=== PATIENT | female | born 1990 | race African-American/Black ===

== ENCOUNTER 2016-10-18 06:28 | Emergency (ER) | payer OTHER ==
[2016-10-18] MEDS ORDERED: Penicillin V Potassium 250 MG TAB ONE (06:51)
== END 2016-10-18 07:05 | disposition home or self-care (01) ==
LOC: NAV ERS 06:28
DX: K02.9 Dental caries, unspecified (principal); K04.7 Periapical abscess without sinus
CPT/HCPCS: 99282

== ENCOUNTER 2016-11-26 14:43 | Emergency (ER) | payer OTHER | END 2016-11-26 15:20 | disposition home or self-care (01) | LOC: NAV ERS 14:43 | DX: L02.11 Cutaneous abscess of neck (principal) | CPT/HCPCS: 99283 ==

== ENCOUNTER 2017-07-26 15:46 | Emergency (ER) | payer OTHER, SELFPAY ==
[2017-07-26] MEDS ORDERED: Ibuprofen 800 MG TAB ONE (16:13)
== END 2017-07-26 16:22 | disposition home or self-care (01) ==
LOC: NAV ERS 15:46
DX: S39.012A Strain of muscle, fascia and tendon of lower back, initial encounter (principal); V49.40XA Driver injured in collision with unspecified motor vehicles in traffic accident, initial encounter
CPT/HCPCS: 99283

== ENCOUNTER 2018-03-26 11:56 | Emergency (ER) | payer OTHER, SELFPAY ==
[2018-03-26] MEDS ORDERED: Acetaminophen 325 MG TAB ONE (12:43)
== END 2018-03-26 12:59 | disposition home or self-care (01) ==
LOC: NAV ERS 11:56
DX: O99.511 Diseases of the respiratory system complicating pregnancy, first trimester (principal); J10.1 Influenza due to other identified influenza virus with other respiratory manifestations; Z3A.08 8 weeks gestation of pregnancy
CPT/HCPCS: 87081; 87430; 87804; 99283

== ENCOUNTER 2018-09-12 09:48 | Outpatient (CLI) | payer OTHER ==
--- NOTE | 2018-09-12 10:27 | ULT ---
LIMITED OBSTETRIC ULTRASOUND: Date: 09/12/18 HISTORY: Evaluate placental tip for marginal placenta/placental previa. TECHNIQUE: Multiplanar grayscale sonographic imaging of the gravid uterus obtained. FINDINGS: There is a single intrauterine gestation demonstrating a vertex presentation. heart rate is 136 bpm. The placenta is located posteriorly. The placental tip is approximately 1.5 cm from the internal os. biometry: BPD 8.4 cm 33 weeks 5 days HC 30 cm 33 weeks 1 day AC 29.1 cm 33 weeks 1 day FL 6.5 cm 33 weeks 4 days Average age based on ultrasound is 33 weeks 0 days +/- 1 week 0 days. Estimated date of delivery is . Estimated weight is 2158 g +/- 324 g. anatomy is not assessed on this examination. Amniotic fluid index is 12.8 cm. IMPRESSION: Single intrauterine gestation as detailed above. The tip of the placenta is approximately 1.5 cm from the internal os, evidence of a low lying placenta. Transcribed Date/Time: 09/12/2018 10:53 AM
== END 2018-09-12 09:49 | disposition home or self-care (01) ==
LOC: NAV ULT 09:48
PROVIDERS: ATTEND Family Medicine
DX: O44.43 Low lying placenta NOS or without hemorrhage, third trimester (principal); Z3A.33 33 weeks gestation of pregnancy
CPT/HCPCS: 76816

== ENCOUNTER 2023-04-09 10:03 | Emergency (ER) | payer BC, OTHER ==
[2023-04-09] MEDS ORDERED: Acetaminophen 500 MG TAB ONE (10:32)
[2023-04-09] MEDS ORDERED: Ondansetron ODT 4 MG TAB ONE (10:41)
[2023-04-09] MEDS ORDERED: Oseltamivir 75 MG CAP ONE (11:26)
== END 2023-04-09 11:32 | disposition home or self-care (01) ==
LOC: NAV ERS 10:03
DX: O98.511 Other viral diseases complicating pregnancy, first trimester (principal); Z3A.12 12 weeks gestation of pregnancy
CPT/HCPCS: 87635; 87804; 99283; Q0162

== ENCOUNTER 2025-03-07 11:40 | Emergency (ER) | payer BC, OTHER | END 2025-03-07 13:38 | disposition home or self-care (01) | LOC: NAV ERS 11:40 | DX: J06.9 Acute upper respiratory infection, unspecified (principal); B34.9 Viral infection, unspecified | CPT/HCPCS: 87081; 87428; 87430; 99283 ==